=== PATIENT | female | born 1995 | race Caucasian/White ===

== ENCOUNTER 2022-05-26 13:58 | Outpatient (CLI) | payer OTHER, MEDICAID, SELFPAY ==
--- NOTE | 2022-05-26 | US_ITS ---
WS: [id number] EARLY OBSTETRICAL ULTRASOUND (<14 WEEKS). HISTORY: THREATENED IN 1ST TRIMESTER COMPARISON: None available. Single intrauterine gestational sac is identified. Cardiac activity at 171 BPM. [place]-rump length jessica sures 1.5 cm which corresponds to a gestation of 7w6d. Normal-appearing yolk sac and amnion demonstra yves. No subchorionic hemorrhage. No free fluid. Normal size ovaries with no mass. Cervix is closed measuring 3.6 cm. US/US OB <= 14 weeks fetus [id number] IMPRESSION: 1. Single intrauterine gestation of 7 weeks 6 days with an EDC of 01/06/2023. 2. Normal cardiac activity.
== END 2022-05-26 13:59 | disposition home or self-care (01) ==
LOC: RAD 14:06
PROVIDERS: PCP Family Medicine; Visit Provider Family Medicine
DX: O20.0 Threatened abortion (principal); Z3A.01 Less than 8 weeks gestation of pregnancy
CPT/HCPCS: 76801

== ENCOUNTER 2022-11-22 16:30 | Outpatient (CLI) | payer OTHER, MEDICAID, SELFPAY ==
[2022-11-22] VITALS (9 sets, daily range): BP systolic 124–140; BP diastolic 60–92; PULSE 76–92; RESP 17; TEMP 36.3; BMI 39.7
[2022-11-22 17:57] LABS: Basophils % 0.3 %; Eosinophils # 0.1 10^3/uL (0.0-0.8); Eosinophils % 1.2 %; Hematocrit 34.4 % (37.0-47.0); Hemoglobin 11.4 g/dL (11.5-15.3); Lymphocytes % 19.8 %; Mean Corpuscular HGB Conc 33.1 g/dL (30.0-36.0); Mean Corpuscular Hemoglobin 29.2 pg (28.0-34.0); Mean Platelet Volume 9.5 fL (7.4-10.4); Monocytes # 0.6 10^3/uL (0.2-0.9); Monocytes % 6.1 %; Neutrophils # 7.31 10^3/uL (1.8-7.7); Neutrophils % 71.9 %; Nucleated Red Blood Cells % 0 %; Platelet Count 242 10^3/cmm (130-400); Red Blood Count 3.91 10^6/uL (4.1-5.3); Red Cell Distribution Width 13.4 % (12.1-15.1); White Blood Count 10.2 10^3/uL (4.0-10.0)
[2022-11-22 18:08] LABS: Urine Appearance Clear (CLEAR); Urine Color Yellow (Yellow)
[2022-11-22 18:09] LABS: Add Urine Culture? Yes; Add Urine Microscopic? YES; Bacteria Urine 2+ /hpf; Bilirubin Urine Neg (Negative); Blood Urine Neg (Negative); Glucose Urine UA Norm (Normal); Ketones Urine Negative (Negative); Leukocyte Esterase Urine 1+ (Negative); Mucus Urine 1+ /hpf; Nitrate Urine Negative (Negative); Protein Urine Neg (Negative); RBC Urine 0-4 /hpf (0-2); Specific Gravity, Urine 1.015 (1.005-1.030); Urobilinogen Urine Norm (Negative); pH Urine 6.5 (5-7)
[2022-11-22 18:17] LABS: Urine Creatinine 101 mg/dL (28-217); Urine Protein Random 6 mg/dL
[2022-11-22 18:21] LABS: Alanine Aminotransferase 19 U/L (0-33); Albumin Level 3.8 g/dL (3.5-5.2); Alkaline Phosphatase 90 U/L (35-105); Anion Gap 15.6 (5-19); Aspartate Amino Transferase 22 U/L (0-32); Blood Urea Nitrogen 8 mg/dL (6-20); Calcium 9.4 mg/dL (8.5-10.5); Carbon Dioxide 20 mmol/L (22-29); Chloride 105 mmol/L (98-107); Globulin 2.8 g/dL (1.3-4.6); Glomerular Filtration Rate 151.6 mL/min (90-130); Glucose 97 mg/dL (65-115); Osmolality Calculated 282 mOsm/kg (285-295); Potassium 3.6 mmol/L (3.5-5.1); Sodium 137 mmol/L (136-145); Total Bilirubin 0.2 mg/dL (0.15-1.2); Total Protein 6.6 g/dL (6.6-8.7); Uric Acid 4.4 mg/dL (2.4-5.7)
[2022-11-22 18:31] LABS: UPRO/UCREAT Ratio 0.06 mg/mg CR
== END 2022-11-22 18:50 | disposition home or self-care (01) ==
LOC: OPOB 16:34 → OBGYN 16:38
PROVIDERS: PCP Family Medicine; Visit Provider Family Medicine
DX: O16.9 Unspecified maternal hypertension, unspecified trimester (principal); O26.899 Other specified pregnancy related conditions, unspecified trimester; R42 Dizziness and giddiness; Z3A.00 Weeks of gestation of pregnancy not specified
CPT/HCPCS: 36415; 59025; 80053; 81001; 82570; 84156; 84550; 85025; 87086; 99211

== ENCOUNTER 2022-12-28 11:52 | Outpatient (CLI) | payer OTHER, MEDICAID, SELFPAY ==
[2022-12-28 12:09] VITALS: RESP 16; BMI 40.7
[2022-12-28 12:19] VITALS: BP 140/73; PULSE 80
[2022-12-28 12:26] LABS: Basophils % 0.4 %; Eosinophils # 0.1 10^3/uL (0.0-0.8); Eosinophils % 0.7 %; Hematocrit 34.6 % (36-47); Lymphocytes % 21.7 %; Mean Corpuscular HGB Conc 34.1 g/dL (30-55); Mean Corpuscular Hemoglobin 29.4 pg (27-33); Mean Corpuscular Volume 86.1 fl (85-98); Mean Platelet Volume 9.2 fL (7.4-10.4); Monocytes # 0.5 10^3/uL (0.2-0.9); Neutrophils # 6.48 10^3/uL (1.8-7.7); Neutrophils % 71.8 %; Nucleated Red Blood Cells % 0 %; Platelet Count 244 10^3/cmm (157-399); Red Blood Count 4.02 10^6/uL (3.85-5.65); Red Cell Distribution Width 13.4 % (12.1-15.1); White Blood Count 9.03 10^3/uL (3.29-11.43)
[2022-12-28 12:30] VITALS: BP 134/74; PULSE 77
[2022-12-28 12:35] LABS: Add Urine Microscopic? YES; Bilirubin Urine Neg (Negative); Blood Urine Neg (Negative); Glucose Urine UA Norm (Normal); Ketones Urine Negative (Negative); Leukocyte Esterase Urine Trace (Negative); Nitrate Urine Negative (Negative); Protein Urine Neg (Negative); Specific Gravity, Urine 1.005 (1.005-1.030); Urine Appearance Clear (CLEAR); Urine Color Yellow (Yellow); Urobilinogen Urine Norm (Negative); pH Urine 7 (5-7)
[2022-12-28 12:36] LABS: Add Urine Culture? No; Bacteria Urine 1+ /hpf; RBC Urine 0-4 /hpf (0-2); Squamous Epithelial Cell Urine 15-25 /hpf (0-5); WBC Urine 0-4 /hpf (0-5)
[2022-12-28 12:44] VITALS: BP 135/76; PULSE 73
[2022-12-28 12:47] LABS: Urine Creatinine 55 mg/dL (28-217); Urine Protein Random 5 mg/dL
[2022-12-28 12:50] LABS: Alanine Aminotransferase 20 U/L (0-33); Albumin Level 3.7 g/dL (3.5-5.2); Alkaline Phosphatase 116 U/L (35-105); Anion Gap 14.9 (5-19); Aspartate Amino Transferase 23 U/L (0-32); Blood Urea Nitrogen 7 mg/dL (6-20); Calcium 8.7 mg/dL (8.5-10.5); Carbon Dioxide 19 mmol/L (22-29); Chloride 105 mmol/L (98-107); Globulin 3.2 g/dL (1.3-4.6); Glomerular Filtration Rate 150.3 mL/min (90-130); Glucose 78 mg/dL (65-115); Osmolality Calculated 277 mOsm/kg (285-295); Potassium 3.9 mmol/L (3.5-5.1); Sodium 135 mmol/L (136-145); Total Bilirubin 0.2 mg/dL (0.15-1.2); Total Protein 6.9 g/dL (6.6-8.7)
[2022-12-28 12:52] LABS: UPRO/UCREAT Ratio 0.09 mg/mg CR
[2022-12-28 12:59] VITALS: BP 132/70; PULSE 68
== END 2022-12-28 13:00 | disposition home or self-care (01) ==
LOC: OPOB 12:02 → OBGYN 12:03
PROVIDERS: PCP Family Medicine; Visit Provider Family Medicine
DX: O16.9 Unspecified maternal hypertension, unspecified trimester (principal); Z3A.00 Weeks of gestation of pregnancy not specified
CPT/HCPCS: 36415; 59025; 80053; 81001; 82570; 84156; 84550; 85025; 99211

== ENCOUNTER 2023-01-02 03:09 | Inpatient (IN) | payer OTHER, MEDICAID, SELFPAY ==
[2023-01-01] VITALS (15 sets, daily range): BP systolic 125–181; BP diastolic 65–96; PULSE 67–90; RESP 16; TEMP 36.3; BMI 40.6
[2023-01-01 22:15] LABS: Basophils % 0.4 %; Eosinophils # 0.1 10^3/uL (0.0-0.8); Hematocrit 33.5 % (36-47); Lymphocytes # 2.6 10^3/uL (0.8-4.8); Lymphocytes % 23.5 %; Mean Corpuscular Hemoglobin 29.5 pg (27-33); Mean Corpuscular Volume 86.6 fl (85-98); Mean Platelet Volume 9.6 fL (7.4-10.4); Monocytes # 0.7 10^3/uL (0.2-0.9); Monocytes % 6.5 %; Neutrophils # 7.51 10^3/uL (1.8-7.7); Nucleated Red Blood Cells % 0 %; Platelet Count 257 10^3/cmm (157-399); Red Blood Count 3.87 10^6/uL (3.85-5.65); Red Cell Distribution Width 13.6 % (12.1-15.1); White Blood Count 11.05 10^3/uL (3.29-11.43)
[2023-01-01] MEDS: miSOPROStol 100 mcg tablet 25 MCG VAGINAL (22:41)
[2023-01-02] VITALS (68 sets, daily range): BP systolic 120–185; BP diastolic 66–105; PULSE 47–101; RESP 16; TEMP 36–36.1; O2SAT 97–99
[2023-01-02] MEDS: miSOPROStol 100 mcg tablet 25 MCG VAGINAL (02:55)
[2023-01-02] MEDS: ondansetron 2 mg/ML SDV 2 mL 4 MG IVP ×2 (08:44→23:24)
[2023-01-02] MEDS: dextrose 5%-lactated ringers 1,000 ML 125 ML IV ×2 (10:55→20:14)
[2023-01-02] MEDS: oxytocin 30 UNIT/500 ML BAG IV (10:55)
[2023-01-02] MEDS: lactated ringers 1,000 ML 999 ML IV ×2 (13:41→14:47)
--- NOTE | 2023-01-02 15:24 | ANES.PROC ---
Anesthesia Procedures Procedure/Date: 01/02/23 Epidural: Time Out Performed: Yes Consents Signed: Procedure Consent Consent: requested by attending/covering physician, from patient, risks and benefits reviewed and patient agrees to proceed Lumbar Level: L2-L3 Epidural position: sitting Epidural procedure: sterile prep of area, 1% lidocaine to numb the area, neg for paresthesia, test dose given, 1.5% xylocaine 1:200k epi (at 1506 3mls), placed PCEA, no systemic response, sterile dressing applied, L.U.D. no apparent complications and 0.2% Ropiavacaine @ mls/hr (10 ml/hr) Additional Comments: Marcaine .25% PF (6mls) fractionated bolus given at 1510
[2023-01-02] MEDS: ROPivacaine syringe 100 MG/50 ML SYRINGE 10 MG EPIDURAL (20:14)
--- NOTE | 2023-01-02 22:03 | PM.PN ---
Documented by User: Eliana Shields CRNA 01/02/23 22:11 Subjective Subjective: Called by RN patient reporting pain above pubis. Epidural placed at roughly 1500 by CE. Adequate analgesia noted within last hour patient reported change in pain, patient checked - progress made from 2cm to 4 cm and membranes are no longer intact. Patient Epidural increased to 12ml/hr and 6ml 3% chloroprocaine bolused at 2200. Fentanyl offered via epidural but declined patient wishes for a opioid free delivery. Prior to bolus patient numbess was equal bilaterally at T11-T12. Will continue to monitor. Vitals/I&O/Wt Last Vital Signs Temp 97.0 F L 01/02/23 03:27 Pulse 65 01/02/23 21:52 Resp 16 01/02/23 20:57 BP 139/84 01/02/23 21:52 Pulse Ox 97 01/02/23 15:05 O2 Del Method Room Air 01/02/23 06:49 01/02/23 01/02/23 01/02/23 06:59 14:59 22:59 Intake Total 1363.083 / 6845.185 5613.867 / 2428.950 Output Total 200 / 200 Balance 1363.083 / 1363.083 865.867 / 2228.950 Weight last 48 hrs Weight 131.995 kg Physical Exam Urinary Catheter Management: Webb Latex: Cath Placed During This Visit: yes Reason for Continuing Indwelling Catheter: Required Immobilization for Trauma or Surgery or Anesthesia Urinary Catheter Date of Insertion: 01/02/23 Urinary Catheter Time of Insertion: 15:55 Data 01/01/23 21:49 Attestations Medical Necessity Statement*: N/A Coding Level of Care Code Acute Code for Chg Fwd Diagnoses Documented by User: Arnold Powell 01/03/23 09:11 Physical Exam Urinary Catheter Management: Webb Latex: Cath Placed During This Visit: yes Data 01/01/23 21:49 Coding Level of Care Code Acute Code for Chg Fwd Diagnoses
[2023-01-03] VITALS (63 sets, daily range): BP systolic 122–189; BP diastolic 62–96; PULSE 58–100; RESP 16–18; TEMP 36.9–37.3; O2SAT 93–100
[2023-01-03] MEDS: dextrose 5%-lactated ringers 1,000 ML 125 ML IV (00:47)
--- NOTE | 2023-01-03 00:47 | PM.PN ---
Documented by User: Eliana Shields CRNA 01/03/23 00:54 Subjective Subjective: 0045 Patient bolus with 3 % Chloroprocaine 5ml and 100 mcg Fentanyl patient 9 cm and at a +1 station rapid change noted patient complaining of low lying pubic pain. Adequate analgesia experienced by patient. Dr. Branch present in OB unit. Vitals/I&O/Wt Last Vital Signs Temp 97.0 F L 01/02/23 03:27 Pulse 78 01/03/23 00:35 Resp 16 01/02/23 20:57 BP 138/74 01/03/23 00:35 Pulse Ox 97 01/02/23 15:05 O2 Del Method Room Air 01/02/23 06:49 01/02/23 01/02/23 01/03/23 14:59 22:59 06:59 Intake Total 1363.083 / 6351.035 5264.867 / 2428.950 Output Total 200 / 200 Balance 1363.083 / 1363.083 865.867 / 2228.950 Weight last 48 hrs Weight 131.995 kg Physical Exam Urinary Catheter Management: Webb Latex: Cath Placed During This Visit: yes Reason for Continuing Indwelling Catheter: Required Immobilization for Trauma or Surgery or Anesthesia Urinary Catheter Date of Insertion: 01/02/23 Urinary Catheter Time of Insertion: 15:55 Data 01/01/23 21:49 Attestations Medical Necessity Statement*: N/A Coding Level of Care Code Acute Code for Chg Fwd Diagnoses Documented by User: Arnold Powell 01/03/23 09:11 Physical Exam Urinary Catheter Management: Webb Latex: Cath Placed During This Visit: yes Data 01/01/23 21:49 Coding Level of Care Code Acute Code for Chg Fwd Diagnoses
[2023-01-03] MEDS: ROPivacaine syringe 100 MG/50 ML SYRINGE EPIDURAL (01:15)
--- NOTE | 2023-01-03 02:04 | PM.OPHPUD ---
Labor & Delivery H&P Update Date of Procedure: January 02, 2023 Date H&P Performed: 12/29/22 Admission Diagnosis: IUP at 39 weeks 5days gestation Borderline macrosomia EFW 3920gm Planned procedure: Induction of labor and delivery
[2023-01-03] MEDS: citric acid-sodium citrate 30 mL UDC PO (03:45)
[2023-01-03] MEDS: metoclopramide 5 mg/mL SDV 2 mL 10 MG IVP (03:46)
[2023-01-03] MEDS: famotidine 20 mg/2 mL INJ IVP (03:46)
[2023-01-03] MEDS: ceFAZolin 2,000 MG in sodium chloride 0.9% (plus) 50 ML 100 MG IV (04:45)
--- NOTE | 2023-01-03 05:27 | PM.OP ---
Operative Report Date of procedure: January 03, 2023 Pre-op diagnosis: IUP at 39 weeks 5 days gestation Failure to descend Procedure done: Primary low transverse section Surgeon: Nadja Branch MD Anesthesia: Epidural Estimated blood loss (mL): 1,000 IV fluids (mL): 1,000 Urine output (mL): 100 Procedure: After informed consent the patient was taken to the OR and prepped and draped in normal sterile fashion in dorsal supine position with a left lateral tilt. After adequate epidural anesthesia was verified a Pfannenstiel skin incision was made and carried through to the underlying layer of fascia sharply. There were several brisk bleeders that were grasped with a hemostat and coagulated with the Bovie. The fascia was entered sharply. The fascial incision was then extended laterally using the Mayos. The fascia was grasped with Ladonna clamps and the underlying rectus muscles were dissected off taking care to avoid injury to the underlying tissue. The peritoneum was entered bluntly and the bladder blade was inserted. The vesicouterine peritoneum was edematous and it was entered sharply using the Metzenbaums. Bladder flap was then created digitally and the bladder blade was then reinserted. Uterine incision was made in a transverse fashion in the lower uterine segment. Amniotic rupture of membranes was performed sharply with clear fluid. The infant was delivered in vertex presentation without complication. He was bulb suctioned upon delivery. The cord was clamped and cut and the infant was handed to the waiting pediatric nurse. Cord blood was obtained. The placenta was delivered grossly intact and normal to inspection using fundal pressure. The uterus was then exteriorized from the abdomen. A dry sponge was used to clear the uterus of clots and debris. There were bilateral right and left inferior uterine incision extensions. The inferior portion of the incision was grasped with ring forceps x3. An attempt was made to suture the left extension but the tissue was very friable so I started with the right aspect. This was sutured all the way over and down the left extension. This was performed using 0 Vicryl. A second layer of 0 chromic was used in an imbricating manner. The incision site was inspected for hemostasis. Irrigation was used to clear the gutters of clots and debris and the incision site was reinspected for hemostasis. The uterus was then returned to the abdomen The bladder flap was then closed using 4-0 Vicryl in a running manner. The peritoneum was reapproximated using 4-0 Vicryl in a running manner. The subfascial tissue was inspected for hemostasis and the fascia was then reapproximated using 0 Vicryl in a running fashion. The subcutaneous tissue was then irrigated. The subcutaneous tissue was then reapproximated using 4-0 Vicryl in a running fashion. The skin was then reapproximated using 4-0 Vicryl on a Octavio needle. Steri-Strips and a pressure bandage were applied and patient went to recovery in good condition. Sponge instrument and needle counts were correct
[2023-01-03] MEDS: ketorolac 30 mg/mL INJ IVP ×3 (06:32→19:42)
[2023-01-03] MEDS: HYDROcodone-acetaminophen 5-325 mg Tablet PO ×4 (06:33→22:59)
--- NOTE | 2023-01-03 09:12 | ANE.PACU2 ---
Inpatient post-anesthesia follow up: Airway intact: Yes Vital signs: Temperature 98.6 F Pulse Rate 78 Respiratory Rate 16 Blood Pressure 147/67 Pulse Oximetry 95 Oxygen Delivery Me thod Room Air Oxygen Flow Rate Fraction of Inspir ed Oxygen Hydration adequate: Yes Nausea and vomiting: No Pain level: 2 Mental status: Baseline
[2023-01-03] MEDS: docusate sodium 100 mg Capsule PO ×2 (09:45→19:42)
[2023-01-03] MEDS: prenatal vitamin Capsule 1 CAP PO (09:45)
[2023-01-03] MEDS: ferrous sulfate EC 325 mg Tablet PO (09:46)
[2023-01-03 17:28] LABS: Hematocrit 28.3 % (36-47); Mean Corpuscular HGB Conc 34.3 g/dL (30-55); Mean Corpuscular Hemoglobin 29.9 pg (27-33); Mean Corpuscular Volume 87.3 fl (85-98); Mean Platelet Volume 9.4 fL (7.4-10.4); Platelet Count 217 10^3/cmm (157-399); Red Blood Count 3.24 10^6/uL (3.85-5.65); Red Cell Distribution Width 13.7 % (12.1-15.1); White Blood Count 16.44 10^3/uL (3.29-11.43)
[2023-01-03] MEDS: simethicone 80 mg Chew PO (19:42)
[2023-01-04] MEDS: ketorolac 30 mg/mL INJ IVP (01:39)
[2023-01-04] MEDS: lanolin oint 7 gm 1 APPLIC TOPICAL (05:22)
[2023-01-04] MEDS: HYDROcodone-acetaminophen 5-325 mg Tablet PO ×4 (05:23→19:14)
[2023-01-04] MEDS: simethicone 80 mg Chew PO (05:23)
[2023-01-04 05:29] VITALS: BP 129/79; PULSE 83; RESP 18; TEMP 36.8; O2SAT 98
[2023-01-04] MEDS: ibuprofen 800 mg tablet PO ×3 (09:15→20:46)
[2023-01-04] MEDS: prenatal vitamin Capsule 1 CAP PO (09:16)
[2023-01-04] MEDS: ferrous sulfate EC 325 mg Tablet PO ×2 (09:16→19:14)
[2023-01-04] MEDS: docusate sodium 100 mg Capsule PO ×2 (09:16→19:14)
[2023-01-04 12:00] VITALS: BP 140/84; PULSE 98; RESP 18; TEMP 36.6; O2SAT 98
[2023-01-04 16:29] VITALS: BP 129/76; PULSE 89; RESP 16; TEMP 36.8; O2SAT 96
--- NOTE | 2023-01-04 20:42 | P.PN_ITS ---
Subjective Subjective: Postop day 1 primary section Doing well. She is ambulating, tolerating a regular diet, has good pain control on oral medications. Vitals/I&O/Wt Last Vital Signs Temp 98.2 F 01/04/23 16:29 Pulse 89 01/04/23 16:29 Resp 16 01/04/23 16:29 BP 129/76 01/04/23 16:29 Pulse Ox 96 01/04/23 16:29 O2 Del Method Room Air 01/04/23 16:29 01/04/23 01/04/23 01/04/23 06:59 14:59 22:59 Intake Total 900 / 900 Output Total 450 / 2750 Balance -450 / -1750 900 / 900 Physical Exam Narrative: Alert and oriented, in bed feeding the , heart regular rate and rhythm, lungs clear to auscultation bilaterally, abdomen is soft with appropriate postoperative tenderness, incision is clean dry and intact with Steri-Strips in place, extremities have some edema but no calf tenderness. Urinary Catheter Management: Webb Latex: Cath Placed During This Visit: yes, but has since been removed by the nurse Reason for Continuing Indwelling Catheter: Decision to DC Catheter Urinary Catheter Date of Insertion: 01/02/23 Urinary Catheter Time of Insertion: 15:55 Date Urinary Catheter Removed: 01/03/23 Time Urinary Catheter Discontinued: 21:50 Data 01/03/23 17:02 A&P Assessment and plan (1) Status post primary low transverse section: Continue routine and postoperative care (2) Acute blood loss anemia: Iron supplementation. Attestations 2 Medical Necessity Statement*: Routine postoperative and care Coding Level of Care Code Acute Code for Chg Fwd Diagnoses Status post primary low transverse section Z98.891 Acute blood loss anemia D62
[2023-01-04 22:00] VITALS: BP 134/83; PULSE 78; RESP 15; TEMP 36.8
[2023-01-05 04:11] VITALS: BP 132/81; PULSE 82; RESP 16; TEMP 36.8
[2023-01-05] MEDS: HYDROcodone-acetaminophen 5-325 mg Tablet PO ×3 (04:21→16:05)
[2023-01-05] MEDS: ferrous sulfate EC 325 mg Tablet PO (08:19)
[2023-01-05] MEDS: docusate sodium 100 mg Capsule PO (08:19)
[2023-01-05] MEDS: prenatal vitamin Capsule 1 CAP PO (08:19)
[2023-01-05 10:00] VITALS: BP 140/83; PULSE 82; RESP 16; TEMP 36.6; O2SAT 96
--- NOTE | 2023-01-05 12:31 | P.DS_ITS ---
Discharge Providers Date of Admission: 01/02/23 03:09 Date of Discharge: January 05, 2023 Attending Provider at Admission: Nadja Branch MD Attending Provider at Discharge: Nadja Branch MD Primary Care Provider: Nadja Branch MD Reason for Visit Reason for Visit: IOL Hospital Course Hospital Course This is a 27-year-old G1 now P1 who was admitted for induction secondary to macrosomia. She got all the way to complete and pushing but had failure to descend. She then underwent a primary low transverse section. She delivered a viable male . Mother and did well after delivery. She was ambulating, tolerating a regular diet, had decent pain control and was comfortable with discharge home. Physical Exam Narrative: Alert and oriented, sitting up in bed feeding baby, heart regular rate and rhythm, lungs clear to auscultation bilaterally, abdomen soft with appropriate postoperative tenderness, incision clean dry and intact with Steri-Strips in place, extremity edema but no calf tenderness. Urinary Catheter Management: Webb Latex: Cath Placed During This Visit: yes, but has since been removed by the nurse Reason for Continuing Indwelling Catheter: Decision to DC Catheter Urinary Catheter Date of Insertion: 01/02/23 Urinary Catheter Time of Insertion: 15:55 Date Urinary Catheter Removed: 01/03/23 Time Urinary Catheter Discontinued: 21:50 Discharge Data Studies Completed and Pending Laboratory Results WBC 16.44 10^3/uL (3.29-11.43) H 01/03/23 17:02 RBC 3.24 10^6/uL (3.85-5.65) L 01/03/23 17:02 Hgb 9.70 g/dL (11.27-16.99) L 01/03/23 17:02 Hct 28.3 % (36-47) L 01/03/23 17:02 MCV 87.3 fl (85-98) 01/03/23 17:02 MCH 29.9 pg (27-33) 01/03/23 17:02 MCHC 34.3 g/dL (30-55) 01/03/23 17:02 RDW 13.7 % (12.1-15.1) 01/03/23 17:02 Plt Count 217 10^3/cmm (157-399) 01/03/23 17:02 MPV 9.4 fL (7.4-10.4) 01/03/23 17:02 Neut % (Auto) 68.0 % 01/01/23 21:49 Lymph % (Auto) 23.5 % 01/01/23 21:49 [place] % (Auto) 6.5 % 01/01/23 21:49 Eos % (Auto) 1.0 % 01/01/23 21:49 Baso % (Auto) 0.4 % 01/01/23 21:49 Neut # (Auto) 7.51 10^3/uL (1.8-7.7) 01/01/23 21:49 Lymph # (Auto) 2.6 10^3/uL (0.8-4.8) 01/01/23 21:49 [place] # (Auto) 0.7 10^3/uL (0.2-0.9) 01/01/23 21:49 Eos # (Auto) 0.1 10^3/uL (0.0-0.8) 01/01/23 21:49 Baso # (Auto) 0.0 10^3/uL (0.0-0.1) 01/01/23 21:49 Nucleated RBC % (auto) 0 % 01/01/23 21:49 Nucleated RBCs # 0.0 /100WBC 01/01/23 21:49 Vitals Last Vital Signs Temp 98.3 F 01/05/23 04:11 Pulse 82 01/05/23 04:11 Resp 16 01/05/23 04:11 BP 132/81 01/05/23 04:11 Pulse Ox 96 01/04/23 16:29 O2 Del Method Room Air 01/05/23 04:11 Discharge Plan Discharge Patient Disposition: Home Condition: Stable Prescriptions: New ibuprofen 800 mg Tablet 800 mg PO TID PRN (Reason: Abdominal Discomfort) Qty: 40 0RF hydrocodone-acetaminophen 5-325 mg Tablet 1 - 2 tab PO Q4H PRN (Reason: Moderate To Severe Pain) Qty: 16 0RF docusate sodium 100 mg Capsule 100 mg PO BID Qty: 60 0RF Continued Vitamin Plus Low Iron 27 mg iron- 1 mg tablet 1 tab PO DAILY Discharge Orders: Discharge Order (Routine); Ordered 01/05/23 Ordered By: Nadja Branch Referrals: Nadja Branch MD [Primary Care Provider] - 4-7 days Discharge Diet: Usual diet Discharge Activity: Limit activity as instructed Patient Instructions: Depression (DC), Opioid Safety (DC), Preeclampsia and Eclampsia After Delivery (GEN), Hemorrhage (DC), OB - Pippa/Jose Carlos, OB Discharge Report, OB Food/Drug Interaction Guide, Opioid Safety, OB Home Care, Abnormal Bleeding Discharge Attestations Time Spent in Discharge Care*: less than 30 min Quality Metrics Clinical Quality Measures [ No reported AMI, CVA or VTE this stay] Coding Level of Care Code Acute Code for Chg Fwd Diagnoses
[2023-01-05 15:00] VITALS: BP 157/109
[2023-01-05] MEDS: ibuprofen 800 mg tablet PO (15:13)
[2023-01-05 17:00] VITALS: BP 153/93; PULSE 76; RESP 16; TEMP 36.6; O2SAT 96
== END 2023-01-05 17:00 | disposition home or self-care (01) | DRG 788 ==
LOC: OPOB 03:09 → OBGYN 03:09
PROVIDERS: Admitting Provider Family Medicine; PCP Family Medicine; Visit Provider Family Medicine
PROC: 10D00Z1 Extraction of Products of Conception, Low, Open Approach (ICD-10-PCS; CPT 59514; principal; 2023-01-03 04:00)
DX: O32.4XX0 Maternal care for high head at term, not applicable or unspecified (principal); O36.63X0 Maternal care for excessive fetal growth, third trimester, not applicable or unspecified; Z3A.39 39 weeks gestation of pregnancy; Z37.0 Single live birth
CPT/HCPCS: 36415; 51702; 59025; 59409; 85025; 85027; 96374; 96376; J0690; J1885; J2400; J2405; J2590; J2704; J2765; J2795; J3010; J3490; J7030; J7120; J7121